=== PATIENT | male | born 1960 | race African-American/Black ===

== ENCOUNTER 2018-01-24 15:50 | Inpatient (IN) | payer OTHER ==
[2018-01-24 18:16] VITALS: BMI 22.1
--- NOTE | 2018-01-24 21:42 | HP ---
COWS - Scale Resting Pulse: 0= [place] 80 or Below Sweatin= Chills/Flushing Restless Observation: 1= Difficult to Sit Still Pupil Size: 1= Pupils >than Normal Bone or Joint Aches: 1= Mild Discomfort Runny Nose/ Eye Tearin= Runny Nose/Eyes GI Upset > 30mins: 2= Nausea/Diarrhea Tremor Observation: 1= Tremor [place], Not Seen Yawning Observation: 2= >3x During Session Anxiety or Irritability: 2=Irritable/Anxious Goose Flesh Skin: 3=Piloerection COWS Score: 16 Admission ROS S - HPI Chief Complaint: opioid withdrawal symptoms Allergies/Adverse Reactions: Allergies Allergy/AdvReac Type Severity Reaction Status Date / Time penicillin G Allergy Intermediate Hives Verified 01/24/18 21:10 Penicillins Allergy Intermediate Hives Verified 01/24/18 21:10 History of Present Illness: 57 yo male with hx of nicotine and heroin dependence is here seeking detox. Reports hx of HTN and insomnia. Denies suicidal homicidal ideation or hx of suicide attempt. Denies any recent detox or hospitalization. Reports last detox [facility] 8 years ago. Longest period of sobriety two years. Denies hx of overdose, blackouts or seizures. Exam Limitations: No Limitations - Ebola screening Have you traveled outside of the country in the last 21 days: No (N) Have you had contact with anyone from an Ebola affected area: No Have you been sick,other than usual withdrawal symptoms: Yes Do you have a fever: No - Review of Systems Constitutional: Chills, Diaphoresis, Changes in sleep, Unintentional Wgt. Loss EENT: reports: No Symptoms Reported Respiratory: reports: No Symptoms reported Cardiac: reports: No Symptoms Reported GI: reports: Diarrhea, Poor Appetite, Poor Fluid Intake, Abdominal cramping : reports: No Symptoms Reported Musculoskeletal: reports: Back Pain, Joint Pain Integumentary: reports: No Symptoms Reported Neuro: reports: No Symptoms reported Endocrine: reports: Increased Thirst Hematology: reports: No Symptoms Reported Psychiatric: reports: Mood/Affect Appropiate, Orientated x3, Anxious Other Systems: Reviewed and Negative Patient History - Patient Medical History Hx Anemia: No Hx Asthma: No Hx Chronic Obstructive Pulmonary Disease (COPD): No Hx Cancer: No Hx Cardiac Disorders: No Hx Congestive Heart Failure: No Hx Hypertension: Yes (no meds ) Hx Hypercholesterolemia: No Hx Pacemaker: No HX Cerebrovascular Accident: No Hx Seizures: No Hx Dementia: No Hx Diabetes: No Hx Gastrointestinal Disorders: No Hx Liver Disease: No Hx Genitourinary Disorders: No Hx Sexually Transmitted Disorders: No Hx Renal Disease (ESRD): No Hx Thyroid Disease: No Hx Human Immunodeficiency Virus (HIV): No Hx Hepatitis C: No Hx Depression: No Hx Suicide Attempt: No Hx Bipolar Disorder: No Hx Schizophrenia: No - Patient Surgical History Past Surgical History: Yes Other Surgical History: Inguinal hernia repair (L) 2014 Anesthesia Reaction: Yes (violent) - PPD History Previous Implant?: No Documented Results: Negative w/o proof Implanted On Prior [facility] Admission?: No PPD to be Administered?: Yes - Smoking Cessation Smoking history: Current every day smoker Have you smoked in the past 12 months: Yes Aproximately how many cigarettes per day: 20 Hx Chewing Tobacco Use: No Initiated information on smoking cessation: Yes 'Breaking Loose' booklet given: 01/24/18 - Substance & Tx. History Hx Alcohol Use: Yes Hx Substance Use: Yes Substance Use Type: Heroin Hx Substance Use Treatment: Yes ([facility] 8 years ago) - Substances Abused Heroin Route: Inhalation Frequency: Daily Amount used: 6 bags Age of first use: 33 Date of Last Use: 01/23/18 Family Disease History - Family Disease History Family Disease History: Other: Father (alive and well ), Mother (alive and well) Admission Physical Exam BHS - Vital Signs Vital Signs: Vital Signs - 24 hr 01/24/18 18:14 Pulse Rate 68 Respiratory 18 Rate Blood Pressure 126/68 - Physical General Appearance: Yes: Appropriately Dressed, Mild Distress, Thin, Sweating, Anxious HEENTM: Yes: EOMI, Hearing grossly Normal, Normal ENT Inspection, Normocephalic , Normal Voice, ODESSA, Pharynx Normal, Tm's normal Respiratory: Yes: Chest Non-Tender, Lungs Clear, Normal Breath Sounds, No Respiratory Distress, No Accessory Muscle Use Neck: Yes: No masses,lesions,Nodules, Trachea in good position Breast: Yes: Breast Exam Deferred Cardiology: Yes: Regular Rhythm, Regular Rate Abdominal: Yes: Normal Bowel Sounds, Non Tender, Flat, Soft Genitourinary: Yes: Within Normal Limits Back: Yes: Normal Inspection Musculoskeletal: Yes: full range of Motion, Gait Steady, Pelvis Stable Extremities: Yes: Normal Capillary Refill, Normal Inspection, Normal Range of Motion, Non-Tender Neurological: Yes: 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-XII NML intact, Fully Oriented, Alert, Motor Strength 5/5, Normal Response, Depressed Affect Integumentary: Yes: Normal Color, Warm, Diaphoresis Lymphatic: Yes: Within Normal Limits - Diagnostic (1) Hypertension Current Visit: Yes Status: Chronic Qualifiers: Hypertension type: essential hypertension Qualified Code(s): I10 - Essential (primary) hypertension Comment: No meds (2) Opioid dependence with withdrawal Current Visit: Yes Status: Acute (3) Difficulty sleeping Current Visit: Yes Status: Acute (4) Weight loss Current Visit: Yes Status: Acute Cleared for Admission [facility] - Detox or Rehab [facility] Level of Care: Medically Managed Detox Regimen/Protocol: Methadone [facility] Breath Alcohol Content Breath Alcohol Content: 0 Urine Drug Screen - Results Drug Screen Negative: Yes Urine Drug Screen Results: OPI-Opiates, BZO-Benzodiazepines, MTD-Methadone, TCA- Tricyclic Antidepress, OXY-Oxycodone
[2018-01-24] MEDS ORDERED: NICOTINE POLACRILEX 2 MG GUM BUC PRN (21:48)
[2018-01-24] MEDS ORDERED: guaiFENesin/D-METHORPHAN HB 10 ML UNIT-DOSE CUPS PO PRN (21:48)
[2018-01-24] MEDS ORDERED: LOPERAMIDE HCL 2 MG CAPSULE PO PRN (21:48)
[2018-01-24] MEDS ORDERED: P-EPHED 60MG/TRIPROLIDI 2.5MG TABLET PO PRN (21:48)
[2018-01-24] MEDS ORDERED: ACETAMINOPHEN 325 MG TABLET (FP) PO PRN (21:48)
[2018-01-24] MEDS ORDERED: MAGNESIUM HYDROX 2400MG/30ML ORAL SUSPENSION 30 ML CUP PO PRN (21:48)
[2018-01-24] MEDS ORDERED: MAG HYDROX/AL HYDROX/SIMETH 30 ML UNIT-DOSE CUP PO PRN (21:48)
[2018-01-24] MEDS ORDERED: IBUPROFEN 400 MG TABLET (FP) PO PRN (21:48)
[2018-01-24] MEDS ORDERED: MENTHOL/PHENOL 1 EACH UD MM PRN (21:48)
[2018-01-24] MEDS ORDERED: MAGNESIUM CITRATE 300 ML BOTTLE PO PRN (21:48)
[2018-01-24] MEDS ORDERED: METHADONE HCL 10 MG TABLET (FOR DETOX USE ONLY) PO ONE ×2 (22:45→23:00)
[2018-01-24] MEDS: THIAMINE HCL 100 MG TABLET (FP) PO SCH (23:07)
[2018-01-24] MEDS: MELATONIN 5 MG TABLETS PO PRN (23:41)
[2018-01-25 02:15] LABS: URINE APPEARANCE CLEAR; URINE BILIRUBIN NEGATIVE (<2.0 mg/dL); URINE COLOR AMBER; URINE GLUCOSE (UA) NEGATIVE (NEGATIVE); URINE KETONE NEGATIVE (NEGATIVE); URINE LEUK ESTERASE NEGATIVE (NEGATIVE); URINE NITRITE NEGATIVE (NEGATIVE); URINE UROBILINOGEN NEGATIVE mg/dL (0.2-1.0)
[2018-01-25 02:23] LABS: URINE PROTEIN 1+ (NEGATIVE)
[2018-01-25 02:28] LABS: EPI CELLS RARE /HPF (FEW); URINE MUCUS MANY
[2018-01-25] MEDS: diazePAM 5 MG TABLET PO PRN ×2 (05:27→10:29)
[2018-01-25] MEDS ORDERED: METHADONE HCL 10 MG TABLET (FOR DETOX USE ONLY) PO ONE (10:00)
[2018-01-25] MEDS: NICOTINE 21 MG/24 HOURS TOPICAL PATCH TD SCH (10:29)
[2018-01-25] MEDS: PRENATAL VITAMINS W/ FOLIC ACID TABLET (FP) PO SCH (10:29)
[2018-01-25 10:59] LABS: HEMATOCRIT 32.4 % (35.4-49); MCH 31.7 pg (25.7-33.7); MCHC 33.9 g/dl (32.0-35.9); MEAN CELL VOLUME 93.5 fl (80-96); MEAN PLT VOLUME 7.7 fl (7.5-11.1); PLATELET COUNT 209 K/MM3 (134-434); RBC 3.47 M/mm3 (4.00-5.60); RDW 13.2 % (11.9-15.9); WHITE BLOOD COUNT 5.6 K/mm3 (4.0-10.0)
[2018-01-25 11:15] LABS: ALK PHOS 65 U/L (45-117); ANION GAP 3 (8-16); BILIRUBIN,TOTAL 0.1 mg/dL (0.2-1.0); BLOOD UREA NITROGEN 17 mg/dL (7-18); CALCIUM 8.6 mg/dL (8.5-10.1); CHLORIDE 108 mmol/L (98-107); CO2 31 mmol/L (21-32); CREATININE 0.7 mg/dL (0.7-1.3); GLUCOSE,RANDOM 99 mg/dL (74-106); SGOT/AST 14 U/L (15-37); SGPT/ALT 25 U/L (12-78); SODIUM 142 mmol/L (136-145); TOT PROT 5.7 g/dl (6.4-8.2)
--- NOTE | 2018-01-25 12:24 | PN ---
BHS COWS - Scale Resting Pulse: 0= [place] 80 or Below Sweatin= No chills or Flushing Restless Observation: 0= Sits Still Pupil Size: 0= Normal to Room Light Bone or Joint Aches: 2= Severe Diffuse Aches Runny Nose/ Eye Tearin= None GI Upset > 30mins: 2= Nausea/Diarrhea Tremor Observation of Outstretched Hands: 2= Slight Tremor Visible Yawning Observation: 2= >3x During Session Anxiety or Irritability: 2=Irritable/Anxious Goose Flesh Skin: 3=Piloerection COWS Score: 13 BHS Progress Note (SOAP) Subjective: Stomach Cramping, Fatigue, Diarrhea, Tremors. Objective: PATIENT A & O X 3. NO ACUTE DISTRESS. 01/25/18 12:19 Vital Signs Temperature 97.4 F L 01/25/18 09:37 Pulse Rate 52 L 01/25/18 09:37 Respiratory Rate 16 01/25/18 09:37 Blood Pressure 143/86 01/25/18 09:37 O2 Sat by Pulse Oximetry (%) Laboratory Tests 01/24/18 01/25/18 01/25/18 23:24 07:00 07:00 WBC 5.6 RBC 3.47 L Hgb 11.0 L Hct 32.4 L D MCV 93.5 MCH 31.7 MCHC 33.9 RDW 13.2 Plt Count 209 MPV 7.7 Sodium 142 Potassium 4.0 Chloride 108 H Carbon Dioxide 31 Anion Gap 3 L BUN 17 Creatinine 0.7 Creat Clearance w eGFR > 60 Random Glucose 99 Calcium 8.6 Total Bilirubin 0.1 L AST 14 L ALT 25 D Alkaline Phosphatase 65 Total Protein 5.7 L Albumin 3.0 L Urine Color Naina Urine Appearance Clear Urine pH 5.0 Ur Specific [place] 1.031 Urine Protein 1+ H Urine Glucose (UA) Negative Urine Ketones Negative Urine Blood Negative Urine Nitrite Negative Urine Bilirubin Negative Urine Urobilinogen Negative Ur Leukocyte Esterase Negative Urine WBC (Auto) 1 Urine RBC (Auto) None Ur Epithelial Cells Rare Urine Mucus Many LABS NOTED. RPR RESULT PENDING. 01/25/18 12:23 Assessment: 01/25/18 12:20 WITHDRAWAL SYMPTOMS. ANEMIA. 01/25/18 12:23 Plan: CONTINUE DETOX. INCREASE DAILY PO FLUID INTAKE. PRN IMMODIUM FOR DIARRHEA.
[2018-01-25] MEDS: ALBUTEROL SO4 2.5/IPRATROPIUM 0.5 INH SOL 3 ML VIAL.NEB. NEB PRN (12:33)
[2018-01-25] MEDS: THIAMINE HCL 100 MG TABLET (FP) PO SCH (22:00)
[2018-01-26] MEDS ORDERED: METHADONE HCL 5 MG TABLET (FOR DETOX USE ONLY) PO ONE (10:00)
[2018-01-26] MEDS: NICOTINE 21 MG/24 HOURS TOPICAL PATCH TD SCH (10:37)
[2018-01-26] MEDS: PRENATAL VITAMINS W/ FOLIC ACID TABLET (FP) PO SCH (10:37)
[2018-01-26] MEDS: diazePAM 5 MG TABLET PO PRN ×2 (10:37→22:08)
--- NOTE | 2018-01-26 12:27 | PN ---
[facility] CIWA - CIWA Score Nausea/Vomitin-No Nausea/No Vomiting Muscle Tremors: 2 Anxiety: 3 Agitation: 2 Paroxysmal Sweats: 3 Orientation: 0-Oriented Tacttile Disturbances: 2-Mild Itch/Numbness/Burn Auditory Disturbances: 0-None Visual Disturbances: 2-Mild Sensitivity Headache: 0-None Present CIWA-Ar Total Score: 14 S Progress Note (SOAP) Subjective: Fatigue, Sweating, Stomach Cramping. Objective: PATIENT A & O X 3, OBSERVED AMBULATING ON UNIT. NO ACUTE DISTRESS. 01/26/18 12:28 Vital Signs Temperature 96.7 F L 01/26/18 09:11 Pulse Rate 55 L 01/26/18 09:11 Respiratory Rate 16 01/26/18 09:11 Blood Pressure 157/91 01/26/18 09:11 O2 Sat by Pulse Oximetry (%) Laboratory Tests 01/24/18 01/25/18 01/25/18 23:24 07:00 07:00 WBC 5.6 RBC 3.47 L Hgb 11.0 L Hct 32.4 L D MCV 93.5 MCH 31.7 MCHC 33.9 RDW 13.2 Plt Count 209 MPV 7.7 Sodium 142 Potassium 4.0 Chloride 108 H Carbon Dioxide 31 Anion Gap 3 L BUN 17 Creatinine 0.7 Creat Clearance w eGFR > 60 Random Glucose 99 Calcium 8.6 Total Bilirubin 0.1 L AST 14 L ALT 25 D Alkaline Phosphatase 65 Total Protein 5.7 L Albumin 3.0 L Urine Color Naina Urine Appearance Clear Urine pH 5.0 Ur Specific [place] 1.031 Urine Protein 1+ H Urine Glucose (UA) Negative Urine Ketones Negative Urine Blood Negative Urine Nitrite Negative Urine Bilirubin Negative Urine Urobilinogen Negative Ur Leukocyte Esterase Negative Urine WBC (Auto) 1 Urine RBC (Auto) None Ur Epithelial Cells Rare Urine Mucus Many RPR Titer 01/25/18 07:00 WBC RBC Hgb Hct MCV MCH MCHC RDW Plt Count MPV Sodium Potassium Chloride Carbon Dioxide Anion Gap BUN Creatinine Creat Clearance w eGFR Random Glucose Calcium Total Bilirubin AST ALT Alkaline Phosphatase Total Protein Albumin Urine Color Urine Appearance Urine pH Ur Specific [place] Urine Protein Urine Glucose (UA) Urine Ketones Urine Blood Urine Nitrite Urine Bilirubin Urine Urobilinogen Ur Leukocyte Esterase Urine WBC (Auto) Urine RBC (Auto) Ur Epithelial Cells Urine Mucus RPR Titer Nonreactive LABS NOTED. Assessment: 01/26/18 12:28 WITHDRAWAL SYMPTOMS. Plan: CONTINUE DETOX. INCREASE DAILY PO FLUID INTAKE.
--- NOTE | 2018-01-26 13:30 | PN ---
BHS Progress Note Note: Clonidine, 0.1 mg PO X 1 ordered for several elevated BP readings (Last: 158/89) . Cyndee Mathews FILE DRAWER FINISHER
[2018-01-26] MEDS ORDERED: cloNIDine HCL 0.1 MG TABLET PO ONE (13:45)
[2018-01-26] MEDS: THIAMINE HCL 100 MG TABLET (FP) PO SCH (22:08)
[2018-01-27] MEDS ORDERED: METHADONE HCL 5 MG TABLET (FOR DETOX USE ONLY) PO ONE (10:00)
[2018-01-27] MEDS: PRENATAL VITAMINS W/ FOLIC ACID TABLET (FP) PO SCH (10:46)
[2018-01-27] MEDS: NICOTINE 21 MG/24 HOURS TOPICAL PATCH TD SCH (10:46)
--- NOTE | 2018-01-27 12:35 | PN ---
BHS Progress Note (SOAP) Subjective: Runny Nose, Sweating. Objective: PATIENT A & O X 3, OBSERVED AMBULATING ON UNIT. NO ACUTE DISTRESS. PATIENT REPORTS THAT HIS BP TENDS TO BE ELEVATED IN PAST ONLY AT TIMES IN WHICH HE IS IN WITHDRAWAL. 01/27/18 12:30 Vital Signs Temperature 97.2 F L 01/27/18 09:36 Pulse Rate 64 01/27/18 09:36 Respiratory Rate 18 01/27/18 09:36 Blood Pressure 151/86 01/27/18 09:36 O2 Sat by Pulse Oximetry (%) Laboratory Tests 01/24/18 01/25/18 01/25/18 23:24 07:00 07:00 WBC 5.6 RBC 3.47 L Hgb 11.0 L Hct 32.4 L D MCV 93.5 MCH 31.7 MCHC 33.9 RDW 13.2 Plt Count 209 MPV 7.7 Sodium 142 Potassium 4.0 Chloride 108 H Carbon Dioxide 31 Anion Gap 3 L BUN 17 Creatinine 0.7 Creat Clearance w eGFR > 60 Random Glucose 99 Calcium 8.6 Total Bilirubin 0.1 L AST 14 L ALT 25 D Alkaline Phosphatase 65 Total Protein 5.7 L Albumin 3.0 L Urine Color Naina Urine Appearance Clear Urine pH 5.0 Ur Specific [place] 1.031 Urine Protein 1+ H Urine Glucose (UA) Negative Urine Ketones Negative Urine Blood Negative Urine Nitrite Negative Urine Bilirubin Negative Urine Urobilinogen Negative Ur Leukocyte Esterase Negative Urine WBC (Auto) 1 Urine RBC (Auto) None Ur Epithelial Cells Rare Urine Mucus Many RPR Titer 01/25/18 07:00 WBC RBC Hgb Hct MCV MCH MCHC RDW Plt Count MPV Sodium Potassium Chloride Carbon Dioxide Anion Gap BUN Creatinine Creat Clearance w eGFR Random Glucose Calcium Total Bilirubin AST ALT Alkaline Phosphatase Total Protein Albumin Urine Color Urine Appearance Urine pH Ur Specific [place] Urine Protein Urine Glucose (UA) Urine Ketones Urine Blood Urine Nitrite Urine Bilirubin Urine Urobilinogen Ur Leukocyte Esterase Urine WBC (Auto) Urine RBC (Auto) Ur Epithelial Cells Urine Mucus RPR Titer Nonreactive LABS NOTED. 01/27/18 12:34 Assessment: 01/27/18 12:31 WITHDRAWAL SYMPTOMS. HYPERTENSION. ANEMIA. 01/27/18 12:32 Plan: CONTINUE DETOX. PATIENT REPORTS THAT CURRENT WITHDRAWAL SYMPTOMS ARE MINIMAL. AT PATIENT'S REQUEST, CURRENT DETOX MEDICATION REGIMEN (METHADONE) MODIFIED SO THAT PATIENT MAY BE DISCHARGED FROM DETOX UNIT TOMORROW, 01/28/2018.
[2018-01-27] MEDS ORDERED: cloNIDine HCL 0.1 MG TABLET PO ONE (12:55)
[2018-01-27] MEDS: THIAMINE HCL 100 MG TABLET (FP) PO SCH (22:13)
[2018-01-27] MEDS: MELATONIN 5 MG TABLETS PO PRN (22:13)
[2018-01-28] MEDS ORDERED: METHADONE HCL 5 MG TABLET (FOR DETOX USE ONLY) PO ONE (06:00)
[2018-01-28 06:21] VITALS: BP 155/97; PULSE 59; TEMP 97.2
[2018-01-28] MEDS: ALBUTEROL SO4 2.5/IPRATROPIUM 0.5 INH SOL 3 ML VIAL.NEB. NEB PRN (07:53)
[2018-01-28] MEDS ORDERED: METHADONE HCL 10 MG TABLET (FOR DETOX USE ONLY) PO ONE (10:00)
--- NOTE | 2018-01-28 17:30 | PN ---
BHS Progress Note (SOAP) Subjective: Patient denies current Detox symptoms and reports that he feels well overall. Objective: PATIENT A & O X 3, OBSERVED AMBULATING ON UNIT. NO ACUTE DISTRESS. 01/28/18 17:29 Vital Signs Temperature 97.2 F L 01/28/18 06:21 Pulse Rate 59 L 01/28/18 06:21 Respiratory Rate 18 01/28/18 06:21 Blood Pressure 155/97 01/28/18 06:21 O2 Sat by Pulse Oximetry (%) Laboratory Tests 01/24/18 01/25/18 01/25/18 23:24 07:00 07:00 WBC 5.6 RBC 3.47 L Hgb 11.0 L Hct 32.4 L D MCV 93.5 MCH 31.7 MCHC 33.9 RDW 13.2 Plt Count 209 MPV 7.7 Sodium 142 Potassium 4.0 Chloride 108 H Carbon Dioxide 31 Anion Gap 3 L BUN 17 Creatinine 0.7 Creat Clearance w eGFR > 60 Random Glucose 99 Calcium 8.6 Total Bilirubin 0.1 L AST 14 L ALT 25 D Alkaline Phosphatase 65 Total Protein 5.7 L Albumin 3.0 L Urine Color Naina Urine Appearance Clear Urine pH 5.0 Ur Specific [place] 1.031 Urine Protein 1+ H Urine Glucose (UA) Negative Urine Ketones Negative Urine Blood Negative Urine Nitrite Negative Urine Bilirubin Negative Urine Urobilinogen Negative Ur Leukocyte Esterase Negative Urine WBC (Auto) 1 Urine RBC (Auto) None Ur Epithelial Cells Rare Urine Mucus Many RPR Titer 01/25/18 07:00 WBC RBC Hgb Hct MCV MCH MCHC RDW Plt Count MPV Sodium Potassium Chloride Carbon Dioxide Anion Gap BUN Creatinine Creat Clearance w eGFR Random Glucose Calcium Total Bilirubin AST ALT Alkaline Phosphatase Total Protein Albumin Urine Color Urine Appearance Urine pH Ur Specific [place] Urine Protein Urine Glucose (UA) Urine Ketones Urine Blood Urine Nitrite Urine Bilirubin Urine Urobilinogen Ur Leukocyte Esterase Urine WBC (Auto) Urine RBC (Auto) Ur Epithelial Cells Urine Mucus RPR Titer Nonreactive LABS NOTED. Assessment: 01/28/18 17:29 COMPLETION OF DETOX REGIMEN. Plan: PATIENT SCHEDULED FOR DISCHARGE FROM DETOX UNIT TODAY.
--- NOTE | 2018-01-28 17:33 | DS ---
[facility] Detox Discharge Summary Admission Date: 01/24/18 Discharge Date: 01/28/18 - History Present History: Opioid Dependence Additional Comments: PATIENT GOING HOME AND WILL RETURN TO WORK. PATIENT WILL ATTEND LOCAL 12-STEP / NA OUTPATIENT SUPPORT GROUPS. PATIENT WAS DISCHARGED FROM DETOX UNIT IN STABLE MEDICAL CONDITION. Pertinent Past History: Difficulty Sleeping, Weight Loss, HTN. - Physical Exam Results Vital Signs: Vital Signs Temperature 97.2 F L 01/28/18 06:21 Pulse Rate 59 L 01/28/18 06:21 Respiratory Rate 18 01/28/18 06:21 Blood Pressure 155/97 01/28/18 06:21 O2 Sat by Pulse Oximetry (%) Pertinent Admission Physical Exam Findings: WITHDRAWAL SYMPTOMS. Laboratory Tests 01/24/18 01/25/18 01/25/18 23:24 07:00 07:00 WBC 5.6 RBC 3.47 L Hgb 11.0 L Hct 32.4 L D MCV 93.5 MCH 31.7 MCHC 33.9 RDW 13.2 Plt Count 209 MPV 7.7 Sodium 142 Potassium 4.0 Chloride 108 H Carbon Dioxide 31 Anion Gap 3 L BUN 17 Creatinine 0.7 Creat Clearance w eGFR > 60 Random Glucose 99 Calcium 8.6 Total Bilirubin 0.1 L AST 14 L ALT 25 D Alkaline Phosphatase 65 Total Protein 5.7 L Albumin 3.0 L Urine Color Naina Urine Appearance Clear Urine pH 5.0 Ur Specific [place] 1.031 Urine Protein 1+ H Urine Glucose (UA) Negative Urine Ketones Negative Urine Blood Negative Urine Nitrite Negative Urine Bilirubin Negative Urine Urobilinogen Negative Ur Leukocyte Esterase Negative Urine WBC (Auto) 1 Urine RBC (Auto) None Ur Epithelial Cells Rare Urine Mucus Many RPR Titer 01/25/18 07:00 WBC RBC Hgb Hct MCV MCH MCHC RDW Plt Count MPV Sodium Potassium Chloride Carbon Dioxide Anion Gap BUN Creatinine Creat Clearance w eGFR Random Glucose Calcium Total Bilirubin AST ALT Alkaline Phosphatase Total Protein Albumin Urine Color Urine Appearance Urine pH Ur Specific [place] Urine Protein Urine Glucose (UA) Urine Ketones Urine Blood Urine Nitrite Urine Bilirubin Urine Urobilinogen Ur Leukocyte Esterase Urine WBC (Auto) Urine RBC (Auto) Ur Epithelial Cells Urine Mucus RPR Titer Nonreactive LABS NOTED. - Treatment Hospital Course: Detox Protocol Followed, Detoxed Safely, Responded well, Discharged Condition Good Patient has Accepted a Rehab Referral to: PT. GOING HOME. PT WILL ASTTEND LOCAL 12-STEP/NA OUTPATIENT SUPPORT GROUPS. - Medication Discharge Medications: Ambulatory Orders NK [No Known Home Medication] 01/24/18 - Diagnosis (1) Difficulty sleeping Status: Acute (2) Opioid dependence with withdrawal Status: Acute (3) Weight loss Status: Acute (4) Hypertension Status: Chronic Qualifiers: Hypertension type: essential hypertension Qualified Code(s): I10 - Essential (primary) hypertension - AMA Did Patient Leave Against Medical Advice: No
[2018-01-29] MEDS ORDERED: METHADONE HCL 5 MG TABLET (FOR DETOX USE ONLY) PO ONE (06:00)
== END 2018-01-28 09:12 | disposition home or self-care (01) | DRG 773 ==
LOC: YASAS 15:50 → Y3N 22:27
PROVIDERS: ADMIT Surgery; ATTEND Surgery
PROC: HZ2ZZZZ Detoxification Services for Substance Abuse Treatment (ICD-10-PCS; principal; 2018-01-24)
DX: F11.23 Opioid dependence with withdrawal (principal); I10 Essential (primary) hypertension; G47.00 Insomnia, unspecified; D64.9 Anemia, unspecified; Z88.0 Allergy status to penicillin; Z87.898 Personal history of other specified conditions
CPT/HCPCS: 36415; 80053; 81003; 81015; 85027; 86593; 94640; J0735; J7620

== ENCOUNTER 2019-04-24 15:10 | Inpatient (IN) | payer OTHER ==
[2019-04-24 17:00] VITALS: BMI 23.3
--- NOTE | 2019-04-24 19:18 | HP ---
COWS - Scale Resting Pulse: 0= [place] 80 or Below Sweatin=Flushed/Facial Moisture Restless Observation: 1= Difficult to Sit Still Pupil Size: 2= Moderately Dilated (Pupils 4 mm) Bone or Joint Aches: 0= None Runny Nose/ Eye Tearin= Runny Nose/Eyes GI Upset > 30mins: 0= None Tremor Observation: 1= Tremor [place], Not Seen Yawning Observation: 1= 1-2x During Session Anxiety or Irritability: 0= None Goose Flesh Skin: 0=Smooth Skin COWS Score: 9 CIWA Score - Admission Criteria [facility] Guidelines: Admission for Medically Managed Detox: Requires at least one of the followin. CIWA greater than 12 2. Seizures within the past 24 hours 3. Delirium tremens within the past 24 hours 4. Hallucinations within the past 24 hours 5. Acute intervention needed for co occurring medical disorder 6. Acute intervention needed for co occurring psychiatric disorder 7. Severe withdrawal that cannot be handled at a lower level of care (continued vomiting, continued diarrhea, abnormal vital signs) requiring intravenous medication and/or fluids 8. Admitting History and Physical - Smoking History Smoking history: Current every day smoker Have you smoked in the past 12 months: Yes Aproximately how many cigarettes per day: 20 - Alcohol/Substance Use Hx Alcohol Use: Yes Admission ROS [facility] Chief Complaint: Here for heroin detox. Allergies/Adverse Reactions: Allergies Allergy/AdvReac Type Severity Reaction Status Date / Time penicillin G Allergy Intermediate Hives Verified 04/24/19 16:54 Penicillins Allergy Intermediate Hives Verified 04/24/19 16:54 History of Present Illness: 58 yo presents w/ opioid withdrawal seeking detox. Utox: + MOP/BZO LETY: 0.0 Denies hx overdose or seizures . Heroin use began at age 28. Current use 2 bundles/ nasal/daily x 7 months. No Narcan kit at home - suggested obtain at discharge. Denies benzo use, despite + tox Denies ETOH/Beer. Nicotine use began at age 15. Currently smokes almost 1 PPD. PMHx: COPD; MHHx:Denies depression. Denies thoughts of harming self or others. SHx: Domiciled. Employed. Denies legal issues. Search Terms: Alphonse Tobar, 1960 Search Date: 04/24/2019 07:18:14 PM The Drug Utilization Report below displays all of the controlled substance prescriptions, if any, that your patient has filled in the last twelve months. The information displayed on this report is compiled from pharmacy submissions to the Department, and accurately reflects the information as submitted by the pharmacies. This report was requested by: Amanda Kelley | Reference #: [id number] There are no results for the search terms that you entered. Exam Limitations: No Limitations - Ebola screening Have you traveled outside of the country in the last 21 days: No Have you had contact with anyone from an Ebola affected area: No Have you been sick,other than usual withdrawal symptoms: No Do you have a fever: No - Review of Systems Constitutional: Diaphoresis, Changes in sleep (Difficulty staying asleep.), Weight Stable EENT: reports: Blurred Vision, Nose Congestion Respiratory: reports: SOB with Exertion (Walking, climbing stairs) Cardiac: reports: No Symptoms Reported GI: reports: No Symptoms Reported : reports: No Symptoms Reported Musculoskeletal: reports: Back Pain (LBP intermittent. "0") Integumentary: reports: Lesions (small lacerations on fingers) Neuro: reports: No Symptoms reported Endocrine: reports: No Symptoms Reported Hematology: reports: No Symptoms Reported Psychiatric: reports: Mood/Affect Appropiate, Orientated x3 Patient History - Patient Medical History Hx Anemia: No Hx Asthma: No Hx Chronic Obstructive Pulmonary Disease (COPD): No Hx Cancer: No Hx Cardiac Disorders: No Hx Congestive Heart Failure: No Hx Hypertension: Yes (no meds ) Hx Hypercholesterolemia: No Hx Pacemaker: No HX Cerebrovascular Accident: No Hx Seizures: No Hx Dementia: No Hx Diabetes: No Hx Gastrointestinal Disorders: No Hx Liver Disease: No Hx Genitourinary Disorders: No Hx Sexually Transmitted Disorders: No Hx Renal Disease (ESRD): No Hx Thyroid Disease: No Hx Human Immunodeficiency Virus (HIV): No Hx Hepatitis C: No Hx Depression: No Hx Suicide Attempt: No Hx Bipolar Disorder: No Hx Schizophrenia: No - Patient Surgical History Past Surgical History: Yes Other Surgical History: Inguinal hernia repair (L) 2014 Anesthesia Reaction: Yes (violent) - PPD History Previous Implant?: Yes Documented Results: Negative w/proof Implanted On Prior [facility] Admission?: Yes Date: 01/26/18 PPD to be Administered?: Yes - Smoking Cessation Smoking history: Current every day smoker Have you smoked in the past 12 months: Yes Aproximately how many cigarettes per day: 20 Hx Chewing Tobacco Use: No Initiated information on smoking cessation: Yes 'Breaking Loose' booklet given: 04/24/19 - Substance & Tx. History Hx Alcohol Use: No Hx Substance Use: Yes Substance Use Type: Heroin Hx Substance Use Treatment: Yes (detox, rehab, Meth prog 2 years ago) - Substances abused Heroin Substance route: Inhalation Frequency: Daily Amount used: 2 bundles Age of first use: 28 Date of last use: 04/24/19 Admission Physical Exam [facility] - Vital Signs Vital Signs: Vital Signs - 24 hr 04/24/19 16:53 Temperature 97.1 F L Pulse Rate 51 L Respiratory 18 Rate Blood Pressure 123/73 - Physical General Appearance: Yes: Mild Distress, Thin, Tremorous (Mild), Sweating ( Increased facial moisture) HEENTM: Yes: EOMI (Jerking movement of eyes upon lateral gaze), Hearing grossly Normal, Normocephalic, Normal Voice, ODESSA (Pupils = 4 mm), Pharynx Normal, Nasal Congestion, Other (Dry tongue/thickened saliva) Respiratory: Yes: Lungs Clear (Pulse )x = 99%), Normal Breath Sounds, No Respiratory Distress Neck: Yes: No masses,lesions,Nodules, Supple Breast: Yes: Breast Exam Deferred Cardiology: Yes: Regular Rhythm, S1, S2, Bradycardia (HR: 48) Abdominal: Yes: Non Tender, Flat, Soft, Increased Bowel Sounds Genitourinary: Yes: Within Normal Limits Back: Yes: Normal Inspection Musculoskeletal: Yes: full range of Motion, Gait Steady Extremities: Yes: Normal Capillary Refill, Tremors (Mild) 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 intact (Jerking movement of eyes upon lateral gaze), Fully Oriented, Alert, Motor Strength 5/5 Integumentary: Yes: Normal Color, Dry (Decreased skin turgor excapt for facial mositure), Warm, Diaphoresis (Increased facial mositure), Other (Cracked, flaky skin feet and between toes.) Lymphatic: Yes: Within Normal Limits - Diagnostic (1) Difficulty sleeping Current Visit: Yes Status: Chronic (2) Opioid dependence with withdrawal Current Visit: Yes Status: Acute (3) Bradycardia Current Visit: Yes Status: Acute (4) At risk for dehydration Current Visit: Yes Status: Acute Cleared for Admission [facility] - Detox or Rehab [facility] Level of Care: Medically Managed Detox Regimen/Protocol: Methadone Claeared for Rehab Admission: No Breathalyzer - Breathalyzer Breathalyzer: 0 Urine Drug Screen - Test Device Lot number: [id number] Expiration date: 12/18/20 - Control Is test valid?: No - Results Drug screen NEGATIVE: No Urine drug screen results: MOP-Opiates, BZO-Benzodiazepines Inpatient Rehab Admission - Rehab Decision to Admit Inpatient rehab admission?: No
[2019-04-24] MEDS ORDERED: MENTHOL/PHENOL 1 EACH UD MM PRN (20:48)
[2019-04-24] MEDS ORDERED: ACETAMINOPHEN 325 MG TABLET (FP) PO PRN ×2 (20:48)
[2019-04-24] MEDS ORDERED: MAGNESIUM CITRATE 300 ML BOTTLE PO PRN (20:48)
[2019-04-24] MEDS ORDERED: MAGNESIUM HYDROX 2400MG/30ML ORAL SUSPENSION 30 ML CUP PO PRN (20:48)
[2019-04-24] MEDS ORDERED: NALOXONE HCL 0.4 MG/ML VIAL IM PRN (20:48)
[2019-04-24] MEDS ORDERED: MAG HYDROX/AL HYDROX/SIMETH 30 ML UNIT-DOSE CUP PO PRN (20:48)
[2019-04-24] MEDS ORDERED: cloNIDine HCL 0.1 MG TABLET PO PRN (20:48)
[2019-04-24] MEDS ORDERED: IBUPROFEN 400 MG TABLET (FP) PO PRN (20:48)
[2019-04-24] MEDS ORDERED: BISMUTH SUBSALICYLATE 524 MG/30 ML UD PO PRN (20:48)
[2019-04-24] MEDS ORDERED: ALBUTEROL SO4 8 GM HFA INHALER IH PRN (20:51)
[2019-04-24] MEDS ORDERED: MELATONIN 5 MG TABLETS PO PRN (22:00)
[2019-04-24] MEDS: THIAMINE HCL 100 MG TABLET (FP) PO SCH (22:10)
[2019-04-24] MEDS ORDERED: METHADONE HCL 10 MG TABLET (FOR DETOX USE ONLY) PO ONE (23:00)
--- NOTE | 2019-04-25 09:15 | EKG ---
Test Reason : Blood Pressure : / mmHG Vent. Rate : 050 BPM Atrial Rate : 050 BPM P-R Int : 160 ms QRS Dur : 092 ms QT Int : 522 ms P-R-T Axes : 076 073 065 degrees QTc Int : 475 ms SINUS BRADYCARDIA OTHERWISE NORMAL ECG NO PREVIOUS ECGS AVAILABLE Confirmed by MD Jonathan, Ayo ([id number]) on 04/25/2019 9:14:34 AM Referred By: SCOTT WALSH Confirmed By:Ayo Castillo MD
[2019-04-25 09:35] LABS: HEMATOCRIT 34.7 % (35.4-49); HEMOGLOBIN 11.8 GM/dL (11.7-16.9); MCH 31.7 pg (25.7-33.7); MCHC 33.8 g/dl (32.0-35.9); MEAN CELL VOLUME 93.8 fl (80-96); MEAN PLT VOLUME 7.4 fl (7.5-11.1); PLATELET COUNT 218 K/MM3 (134-434); RDW 12.9 % (11.9-15.9)
[2019-04-25 09:54] LABS: ALBUMIN 3.2 g/dl (3.4-5.0); BILIRUBIN,TOTAL 0.4 mg/dL (0.2-1); CALCIUM 8.9 mg/dL (8.5-10.1); CREATININE 0.8 mg/dL (0.55-1.3); POTASSIUM 4.9 mmol/L (3.5-5.1)
[2019-04-25] MEDS ORDERED: METHADONE HCL 5 MG TABLET (FOR DETOX USE ONLY) PO ONE (10:00)
[2019-04-25] MEDS: PRENATAL VITAMINS W/ FOLIC ACID TABLET (FP) PO SCH (10:46)
--- NOTE | 2019-04-25 13:09 | PN ---
S COWS - Scale Resting Pulse: 0= [place] 80 or Below Sweatin= No chills or Flushing Restless Observation: 1= Difficult to Sit Still Pupil Size: 1= Pupils >than Normal Bone or Joint Aches: 1= Mild Discomfort Runny Nose/ Eye Tearin= Nasal Congestion GI Upset > 30mins: 1= Stomach Cramp Tremor Observation of Outstretched Hands: 1= Tremor [place], Not Seen Yawning Observation: 1= 1-2x During Session Anxiety or Irritability: 2=Irritable/Anxious Goose Flesh Skin: 0=Smooth Skin COWS Score: 9 S Progress Note (SOAP) Subjective: alert,irritable,anxious,interrupted sleep,pain in the body and back Objective: 04/25/19 13:06 Vital Signs Temperature 98.1 F 04/25/19 09:25 Pulse Rate 62 04/25/19 09:25 Respiratory Rate 17 04/25/19 09:25 Blood Pressure 127/79 04/25/19 09:25 O2 Sat by Pulse Oximetry (%) Laboratory Last Values WBC 6.0 K/mm3 (4.0-10.0) 04/25/19 08:00 RBC 3.70 M/mm3 (4.00-5.60) L 04/25/19 08:00 Hgb 11.8 GM/dL (11.7-16.9) 04/25/19 08:00 Hct 34.7 % (35.4-49) L 04/25/19 08:00 MCV 93.8 fl (80-96) 04/25/19 08:00 MCH 31.7 pg (25.7-33.7) 04/25/19 08:00 MCHC 33.8 g/dl (32.0-35.9) 04/25/19 08:00 RDW 12.9 % (11.9-15.9) 04/25/19 08:00 Plt Count 218 K/MM3 (134-434) 04/25/19 08:00 MPV 7.4 fl (7.5-11.1) L 04/25/19 08:00 Sodium 139 mmol/L (136-145) 04/25/19 08:00 Potassium 4.9 mmol/L (3.5-5.1) 04/25/19 08:00 Chloride 108 mmol/L (98-107) H 04/25/19 08:00 Carbon Dioxide 28 mmol/L (21-32) 04/25/19 08:00 Anion Gap 3 MMOL/L (8-16) L 04/25/19 08:00 BUN 19.0 mg/dL (7-18) H 04/25/19 08:00 Creatinine 0.8 mg/dL (0.55-1.3) 04/25/19 08:00 Est GFR (CKD-EPI)AfAm 112.53 04/25/19 08:00 Est GFR (CKD-EPI)NonAf 97.10 04/25/19 08:00 Random Glucose 104 mg/dL (74-106) 04/25/19 08:00 Calcium 8.9 mg/dL (8.5-10.1) 04/25/19 08:00 Total Bilirubin 0.4 mg/dL (0.2-1) 04/25/19 08:00 AST 17 U/L (15-37) 04/25/19 08:00 ALT 20 U/L (13-61) 04/25/19 08:00 Alkaline Phosphatase 61 U/L (45-117) 04/25/19 08:00 Total Protein 6.0 g/dl (6.4-8.2) L 04/25/19 08:00 Albumin 3.2 g/dl (3.4-5.0) L 04/25/19 08:00 Assessment: 04/25/19 13:07 withdrawal symptom Plan: continue detox methadone regimen
[2019-04-25] MEDS: THIAMINE HCL 100 MG TABLET (FP) PO SCH (22:42)
[2019-04-26 09:09] VITALS: BP 144/76; PULSE 50; TEMP 98.2
[2019-04-26] MEDS ORDERED: METHADONE HCL 10 MG TABLET (FOR DETOX USE ONLY) PO ONE (10:00)
[2019-04-26] MEDS: PRENATAL VITAMINS W/ FOLIC ACID TABLET (FP) PO SCH (10:29)
--- NOTE | 2019-04-26 13:36 | PN ---
[facility] COWS - Scale Resting Pulse: 0= [place] 80 or Below Sweatin= No chills or Flushing Restless Observation: 1= Difficult to Sit Still Pupil Size: 1= Pupils >than Normal Bone or Joint Aches: 1= Mild Discomfort Runny Nose/ Eye Tearin= Nasal Congestion GI Upset > 30mins: 1= Stomach Cramp Tremor Observation of Outstretched Hands: 2= Slight Tremor Visible Yawning Observation: 1= 1-2x During Session Anxiety or Irritability: 2=Irritable/Anxious Goose Flesh Skin: 0=Smooth Skin COWS Score: 10 [facility] Progress Note (SOAP) Subjective: alert,irritable,anxious,interrupted sleep,pain in the body, Objective: 04/26/19 13:35 Vital Signs Temperature 98.2 F 04/26/19 09:08 Pulse Rate 50 L 04/26/19 09:08 Respiratory Rate 18 04/26/19 09:08 Blood Pressure 144/76 04/26/19 09:08 O2 Sat by Pulse Oximetry (%) Laboratory Last Values WBC 6.0 K/mm3 (4.0-10.0) 04/25/19 08:00 RBC 3.70 M/mm3 (4.00-5.60) L 04/25/19 08:00 Hgb 11.8 GM/dL (11.7-16.9) 04/25/19 08:00 Hct 34.7 % (35.4-49) L 04/25/19 08:00 MCV 93.8 fl (80-96) 04/25/19 08:00 MCH 31.7 pg (25.7-33.7) 04/25/19 08:00 MCHC 33.8 g/dl (32.0-35.9) 04/25/19 08:00 RDW 12.9 % (11.9-15.9) 04/25/19 08:00 Plt Count 218 K/MM3 (134-434) 04/25/19 08:00 MPV 7.4 fl (7.5-11.1) L 04/25/19 08:00 Sodium 139 mmol/L (136-145) 04/25/19 08:00 Potassium 4.9 mmol/L (3.5-5.1) 04/25/19 08:00 Chloride 108 mmol/L (98-107) H 04/25/19 08:00 Carbon Dioxide 28 mmol/L (21-32) 04/25/19 08:00 Anion Gap 3 MMOL/L (8-16) L 04/25/19 08:00 BUN 19.0 mg/dL (7-18) H 04/25/19 08:00 Creatinine 0.8 mg/dL (0.55-1.3) 04/25/19 08:00 Est GFR (CKD-EPI)AfAm 112.53 04/25/19 08:00 Est GFR (CKD-EPI)NonAf 97.10 04/25/19 08:00 Random Glucose 104 mg/dL (74-106) 04/25/19 08:00 Calcium 8.9 mg/dL (8.5-10.1) 04/25/19 08:00 Total Bilirubin 0.4 mg/dL (0.2-1) 04/25/19 08:00 AST 17 U/L (15-37) 04/25/19 08:00 ALT 20 U/L (13-61) 04/25/19 08:00 Alkaline Phosphatase 61 U/L (45-117) 04/25/19 08:00 Total Protein 6.0 g/dl (6.4-8.2) L 04/25/19 08:00 Albumin 3.2 g/dl (3.4-5.0) L 04/25/19 08:00 RPR Titer Nonreactive (NONREACTIVE) 04/25/19 08:00 Assessment: 04/26/19 13:36 withdrawal symptom Plan: continue detox methadone regimen
--- NOTE | 2019-04-26 13:43 | PN ---
[facility] Progress Note Note: patient did not want to complete treatment,high risk of relapsing explained, understood, all attempts to convince patient to stay with no avail,patient singed release ama, advis e to call 911 if not feeling well
--- NOTE | 2019-04-26 13:45 | DS ---
[facility] Detox Discharge Summary Admission Date: 04/24/19 Discharge Date: 04/26/19 - History Present History: Opioid Dependence Additional Comments: patient signed ama Pertinent Past History: insomnia - Physical Exam Results Vital Signs: Vital Signs Temperature 98.2 F 04/26/19 09:08 Pulse Rate 50 L 04/26/19 09:08 Respiratory Rate 18 04/26/19 09:08 Blood Pressure 144/76 04/26/19 09:08 O2 Sat by Pulse Oximetry (%) Pertinent Admission Physical Exam Findings: withdrawal signs and symptom Laboratory Last Values WBC 6.0 K/mm3 (4.0-10.0) 04/25/19 08:00 RBC 3.70 M/mm3 (4.00-5.60) L 04/25/19 08:00 Hgb 11.8 GM/dL (11.7-16.9) 04/25/19 08:00 Hct 34.7 % (35.4-49) L 04/25/19 08:00 MCV 93.8 fl (80-96) 04/25/19 08:00 MCH 31.7 pg (25.7-33.7) 04/25/19 08:00 MCHC 33.8 g/dl (32.0-35.9) 04/25/19 08:00 RDW 12.9 % (11.9-15.9) 04/25/19 08:00 Plt Count 218 K/MM3 (134-434) 04/25/19 08:00 MPV 7.4 fl (7.5-11.1) L 04/25/19 08:00 Sodium 139 mmol/L (136-145) 04/25/19 08:00 Potassium 4.9 mmol/L (3.5-5.1) 04/25/19 08:00 Chloride 108 mmol/L (98-107) H 04/25/19 08:00 Carbon Dioxide 28 mmol/L (21-32) 04/25/19 08:00 Anion Gap 3 MMOL/L (8-16) L 04/25/19 08:00 BUN 19.0 mg/dL (7-18) H 04/25/19 08:00 Creatinine 0.8 mg/dL (0.55-1.3) 04/25/19 08:00 Est GFR (CKD-EPI)AfAm 112.53 04/25/19 08:00 Est GFR (CKD-EPI)NonAf 97.10 04/25/19 08:00 Random Glucose 104 mg/dL (74-106) 04/25/19 08:00 Calcium 8.9 mg/dL (8.5-10.1) 04/25/19 08:00 Total Bilirubin 0.4 mg/dL (0.2-1) 04/25/19 08:00 AST 17 U/L (15-37) 04/25/19 08:00 ALT 20 U/L (13-61) 04/25/19 08:00 Alkaline Phosphatase 61 U/L (45-117) 04/25/19 08:00 Total Protein 6.0 g/dl (6.4-8.2) L 04/25/19 08:00 Albumin 3.2 g/dl (3.4-5.0) L 04/25/19 08:00 RPR Titer Nonreactive (NONREACTIVE) 04/25/19 08:00 Vital Signs Temperature 98.2 F 04/26/19 09:08 Pulse Rate 50 L 04/26/19 09:08 Respiratory Rate 18 04/26/19 09:08 Blood Pressure 144/76 04/26/19 09:08 O2 Sat by Pulse Oximetry (%) - Medication Discharge Medications: Ambulatory Orders Albuterol Sulfate Inhaler - [Ventolin HFA Inhaler -] 2 puff PO Q4HWA 04/24/19 - Diagnosis (1) Opioid dependence with withdrawal Current Visit: Yes Status: Acute - AMA Did Patient Leave Against Medical Advice: Yes
[2019-04-27] MEDS ORDERED: METHADONE HCL 5 MG TABLET (FOR DETOX USE ONLY) PO ONE (06:00)
== END 2019-04-26 14:04 | disposition left against medical advice (07) | DRG 770 ==
LOC: YASAS 15:10 → Y6N 20:34
PROVIDERS: ADMIT Allergy & Immunology; ATTEND Allergy & Immunology
PROC: HZ2ZZZZ Detoxification Services for Substance Abuse Treatment (ICD-10-PCS; principal; 2019-04-24)
DX: F11.23 Opioid dependence with withdrawal (principal); F17.210 Nicotine dependence, cigarettes, uncomplicated; I10 Essential (primary) hypertension; J44.9 Chronic obstructive pulmonary disease, unspecified; G47.00 Insomnia, unspecified; R00.1 Bradycardia, unspecified; Z91.89 Other specified personal risk factors, not elsewhere classified; Z88.0 Allergy status to penicillin
CPT/HCPCS: 36415; 80053; 85027; 86593; 93005; 93010